=== PATIENT | female | born 1930 | race Caucasian/White ===

== ENCOUNTER 2018-11-27 20:24 | Inpatient (IN) | payer MEDICARE ==
[~2018-11-27] VITALS: Ht 167.6 cm; Wt 74.4 kg
[2018-11-27] MEDS ORDERED: SODIUM CHLORIDE 0.9% 1,000 ML IV ONE (22:36)
[2018-11-27] MEDS ORDERED: ONDANSETRON HCL 4MG/2ML INJ IV STA (22:36)
[2018-11-27 23:42] LABS: BASOPHILS % 0.6 % (0.0-2.0); EOSINOPHILS % 2.4 % (0.0-5.0); HEMATOCRIT. 39.8 % (36.0-48.0); HEMOGLOBIN. 12.8 g/dL (12.0-16.0); LYMPHOCYTES % 43.7 % (20.0-50.0); MEAN CORPUSCULAR VOLUME 87.3 fL (81.0-99.0); MEAN PLATELET VOLUME 10.1 fl (7.4-10.4); MONOCYTES % 10.8 % (2.0-8.0); NEUTROPHILS % 42.5 % (40.0-76.0); PLATELET 211 x1000/uL (130-400); RED BLOOD CELL COUNT 4.55 mill/uL (4.2-5.4); RED CELL DISTRIBUTION WIDTH 17.4 % (11.6-14.6)
[2018-11-27 23:50] LABS: CHLORIDE 99 mEq/L (98-107)
[2018-11-27 23:51] LABS: PROTHROMBIN TIME 10.5 sec (9.1-11.1)
[2018-11-27 23:59] LABS: CREATINE KINASE 29 IU/L (26-192)
[2018-11-28 00:14] LABS: BG BASE EXCESS 0.6 mmol/L (-2.0-2.0); BG CARBOXYHEMOGLOBIN 0.6 % (0.5-1.5); BG DEOXYHEMOGLOBIN 6.4 % (0.0-5.0); BG FRACTION INSPIRED OXYGEN 21; BG HCO3 ACT 26.2 mmol/L (22.0-26.0); BG METHEMOGLOBIN 0.2 % (0.0-1.5); BG OXYGEN SATURATION 93.5 % (92.0-98.5); BG OXYHEMOGLOBIN 92.8 % (94.0-97.0); BG PCO2 46.1 mmHg (35.0-45.0); BG PH 7.373 (7.350-7.450); BG PO2 71.6 mmHg (75.0-100.0); BG SAMPLE SITE RIGHT RADIAL; BG TOTAL HEMOGLOBIN 12.6 g/dL (12.0-18.0); BG VENT MODE ROOM AIR
[2018-11-28 03:17] LABS: CLARITY URINE CLEAR (CLEAR); COLOR URINE YELLOW (YELLOW); KETONES URINE NEGATIVE (NEGATIVE); LEUKOCYTE ESTERASE URINE 2+ (NEGATIVE); NITRITE URINE POSITIVE (NEGATIVE); OCCULT BLOOD URINE NEGATIVE (NEGATIVE); PROTEIN URINE NEGATIVE (NEGATIVE); UROBILINOGEN URINE 0.2 E.U./dL (0.2-1.0)
[2018-11-28] MEDS: SODIUM CHLORIDE 0.9% 1,000 ML IV SCH (09:16)
[2018-11-28] MEDS ORDERED: CLONIDINE 0.1MG TABLET PO PRN (09:30)
[2018-11-28] MEDS ORDERED: MAGNESIUM/ALUMINUM HYDROXIDE/SIMETHICONE 30ML UDC PO PRN (09:30)
[2018-11-28] MEDS ORDERED: IPRATROPIUM/ALBUTEROL 0.5-3(2.5)MG/3ML NEB INH PRN (09:30)
[2018-11-28] MEDS ORDERED: DOCUSATE SODIUM 100MG CAPSULE PO PRN (09:30)
[2018-11-28] MEDS: CEFTRIAXONE 1 G PREMIX 50 ML IV SCH (11:24)
[2018-11-28 12:14] LABS: ETHANOL BLOOD < 10 mg/dL
[2018-11-28 12:19] LABS: T4 FREE 0.95 ng/dL (0.76-1.46)
[2018-11-28 12:42] LABS: VITAMIN B12 SERUM >2000 pg/mL pg/mL (211-911)
[2018-11-28 22:21] VITALS: BP 141/86
[2018-11-28 22:26] VITALS: BP 141/86
[2018-11-29] VITALS: BP 136/78
[2018-11-29] MEDS: SODIUM CHLORIDE 0.9% 1,000 ML IV SCH (03:22)
[2018-11-29 04:00] VITALS: BP 148/67
[2018-11-29 08:00] VITALS: BP 116/55
[2018-11-29 09:03] LABS: *AMPHETAMINES SCREEN URINE NEGATIVE (NEGATIVE); *BARBITURATES SCREEN URINE NEGATIVE (NEGATIVE); *BENZODIAZEPINES SCREEN URINE NEGATIVE (NEGATIVE); *COCAINE SCREEN URINE NEGATIVE (NEGATIVE); CANNABINOID URINE SCREEN NEGATIVE (NEGATIVE); METHADONE URINE SCREEN NEGATIVE (NEGATIVE); OPIATES URINE SCREEN NEGATIVE (NEGATIVE); PHENCYCLIDINE URINE SCREEN NEGATIVE (NEGATIVE)
[2018-11-29] MEDS: CEFTRIAXONE 1 G PREMIX 50 ML IV SCH (11:31)
[2018-11-29 12:00] VITALS: BP 134/61
[2018-11-29] MEDS: ENOXAPARIN 40MG/0.4ML SYR SUBCUT SCH (15:00)
[2018-11-29] MEDS ORDERED: CEFTRIAXONE 1 G PREMIX 50 ML IV SCH (15:30)
[2018-11-29 16:00] VITALS: BP 140/66
[2018-11-29 20:00] VITALS: BP_SYST 124; BP_SYST 130; BP_SYST 133; BP_DIAS 58; BP_DIAS 62; BP_DIAS 71
[2018-11-29 21:22] LABS: BASOPHILS % 0.9 % (0.0-2.0); HEMATOCRIT. 36.2 % (36.0-48.0); HEMOGLOBIN. 11.6 g/dL (12.0-16.0); LYMPHOCYTES % 40.4 % (20.0-50.0); MEAN CORPUSCULAR HEMOGLOBIN 28.1 pg (28.0-32.0); MEAN CORPUSCULAR VOLUME 87.3 fL (81.0-99.0); MEAN PLATELET VOLUME 9.4 fl (7.4-10.4); MONOCYTES % 11.9 % (2.0-8.0); NEUTROPHILS % 45.8 % (40.0-76.0); PLATELET 220 x1000/uL (130-400); RED BLOOD CELL COUNT 4.14 mill/uL (4.2-5.4); RED CELL DISTRIBUTION WIDTH 17.4 % (11.6-14.6)
[2018-11-29 21:35] LABS: PHOSPHORUS 2.6 mg/dL (2.5-4.9)
[2018-11-29 21:39] LABS: T4 FREE 1.03 ng/dL (0.76-1.46)
[2018-11-30] VITALS: BP 134/57
[2018-11-30] MEDS: ACETAMINOPHEN 325MG TABLET PO PRN (01:02)
[2018-11-30] MEDS: SODIUM CHLORIDE 0.9% 1,000 ML IV SCH (02:17)
[2018-11-30 04:00] VITALS: BP 135/56
[2018-11-30 06:40] LABS: BASOPHILS % 1.2 % (0.0-2.0); EOSINOPHILS % 1.6 % (0.0-5.0); HEMOGLOBIN. 11.7 g/dL (12.0-16.0); LYMPHOCYTES % 48.7 % (20.0-50.0); MEAN CORPUSCULAR HEMOGLOBIN 28.3 pg (28.0-32.0); MEAN CORPUSCULAR VOLUME 86.8 fL (81.0-99.0); MEAN PLATELET VOLUME 9.5 fl (7.4-10.4); MONOCYTES % 12.2 % (2.0-8.0); NEUTROPHILS % 36.3 % (40.0-76.0); PLATELET 220 x1000/uL (130-400); RED BLOOD CELL COUNT 4.15 mill/uL (4.2-5.4); RED CELL DISTRIBUTION WIDTH 17.4 % (11.6-14.6)
[2018-11-30 08:00] VITALS: BP 131/75
[2018-11-30] MEDS ORDERED: CEFTRIAXONE 1 G PREMIX 50 ML IV SCH (11:30)
[2018-11-30] MEDS: ENOXAPARIN 40MG/0.4ML SYR SUBCUT SCH (15:29)
[2018-11-30 16:00] VITALS: BP 144/71
[2018-11-30] MEDS ORDERED: LEVOFLOXACIN 500MG PREMIX 100 ML IV NR (16:00)
[2018-11-30 20:00] VITALS: BP_SYST 136; BP_SYST 140; BP_SYST 143; BP_DIAS 66; BP_DIAS 69; BP_DIAS 70
[2018-12-01] VITALS: BP 139/69
[2018-12-01] MEDS: SODIUM CHLORIDE 0.9% 1,000 ML IV SCH ×3 (00:22→20:36)
[2018-12-01 04:00] VITALS: BP 126/78
[2018-12-01 06:18] LABS: HEMATOCRIT 37.3 % (36.0-48.0); HEMOGLOBIN 12.1 g/dL (12.0-16.0); MEAN CORPUSCULAR HEMOGLOBIN 27.9 pg (28.0-32.0); MEAN CORPUSCULAR VOLUME 86.4 fL (81.0-99.0); PLATELET 238 x1000/uL (130-400); RED BLOOD CELL COUNT 4.32 mill/uL (4.2-5.4); RED CELL DISTRIBUTION WIDTH 17.3 % (11.6-14.6)
[2018-12-01 06:26] LABS: CHLORIDE 108 mEq/L (98-107)
[2018-12-01 08:00] VITALS: BP 143/59
[2018-12-01] MEDS: ACETAMINOPHEN 325MG TABLET PO PRN ×2 (08:54→20:32)
[2018-12-01 12:00] VITALS: BP 149/72
[2018-12-01] MEDS ORDERED: ASCO500C15 PO (13:54)
[2018-12-01] MEDS ORDERED: PANT40TA4 PO (13:54)
[2018-12-01] MEDS ORDERED: NAPR-679 PO (13:54)
[2018-12-01] MEDS ORDERED: DONE5TAB33 PO (13:54)
[2018-12-01] MEDS ORDERED: GABA-529 PO (13:54)
[2018-12-01] MEDS ORDERED: DULO60CA63 PO (13:54)
[2018-12-01 16:16] VITALS: BP 147/74
[2018-12-01] MEDS: ENOXAPARIN 40MG/0.4ML SYR SUBCUT SCH (16:38)
[2018-12-01] MEDS: LEVOFLOXACIN 250MG PREMIX 50 ML IV SCH (17:07)
[2018-12-01 20:00] VITALS: BP 128/72
[2018-12-02 00:32] VITALS: BP 123/69
[2018-12-02 04:00] VITALS: BP 140/74
[2018-12-02 08:00] VITALS: BP 137/86
[2018-12-02] MEDS: ACETAMINOPHEN 325MG TABLET PO PRN (11:04)
[2018-12-02 12:00] VITALS: BP 128/65
[2018-12-02] MEDS: SODIUM CHLORIDE 0.9% 1,000 ML IV SCH (13:16)
[2018-12-02 16:00] VITALS: BP 141/79
[2018-12-02] MEDS: ENOXAPARIN 40MG/0.4ML SYR SUBCUT SCH (17:12)
[2018-12-02] MEDS: LEVOFLOXACIN 250MG PREMIX 50 ML IV SCH ×2 (17:33→17:35)
[2018-12-02 20:00] VITALS: BP 144/61
[2018-12-03 00:12] VITALS: BP 154/71
[2018-12-03 04:00] VITALS: BP 124/61
[2018-12-03 07:01] LABS: HEMATOCRIT 37.8 % (36.0-48.0); HEMOGLOBIN 12.3 g/dL (12.0-16.0); MEAN CORPUSCULAR HEMOGLOBIN 28.2 pg (28.0-32.0); MEAN CORPUSCULAR VOLUME 86.6 fL (81.0-99.0); PLATELET 235 x1000/uL (130-400); RED BLOOD CELL COUNT 4.36 mill/uL (4.2-5.4); RED CELL DISTRIBUTION WIDTH 17.7 % (11.6-14.6)
[2018-12-03 07:26] LABS: CHLORIDE 107 mEq/L (98-107)
[2018-12-03 08:00] VITALS: BP 117/72
[2018-12-03] MEDS: PANTOPRAZOLE 40MG DR TABLET PO SCH (09:02)
[2018-12-03] MEDS: ACETAMINOPHEN 325MG TABLET PO PRN (09:09)
[2018-12-03] MEDS: LEVOFLOXACIN 250MG TABLET PO SCH (11:36)
[2018-12-03 12:00] VITALS: BP 120/74
[2018-12-03] MEDS: ENOXAPARIN 40MG/0.4ML SYR SUBCUT SCH (14:37)
[2018-12-03 16:00] VITALS: BP 137/59
[2018-12-03 20:00] VITALS: BP 149/91
[2018-12-04] VITALS: BP_SYST 135; BP_SYST 159; BP_SYST 163; BP_DIAS 87; BP_DIAS 88
[2018-12-04 04:00] VITALS: BP 130/86
[2018-12-04] MEDS: PANTOPRAZOLE 40MG DR TABLET PO SCH (06:59)
[2018-12-04 08:00] VITALS: BP 125/63
[2018-12-04] MEDS: LEVOFLOXACIN 250MG TABLET PO SCH (11:31)
[2018-12-04 12:00] VITALS: BP 143/60
[2018-12-04] MEDS: ENOXAPARIN 40MG/0.4ML SYR SUBCUT SCH (15:25)
[2018-12-04 16:00] VITALS: BP 119/63
[2018-12-04 18:23] VITALS: BP 119/63
[2018-12-05] MEDS ORDERED: FAMOTIDINE 20MG TABLET PO SCH (09:00)
== END 2018-12-04 21:15 | DRG 73 ==
LOC: ER 20:24 → 7WST 11-28 03:09 → EDBEDREQTM 11-28 03:13 → EDBEDREQ 11-28 03:13 → ENRESERV 11-28 21:03
PROVIDERS: ADMIT Internal Medicine; ATTEND Internal Medicine
PROC: 4A00X4Z Measurement of Central Nervous Electrical Activity, External Approach (ICD-10-PCS; principal; 2018-11-29)
DX: G90.8 Other disorders of autonomic nervous system (principal); G92 Toxic encephalopathy; N39.0 Urinary tract infection, site not specified; B96.20 Unspecified Escherichia coli [E. coli] as the cause of diseases classified elsewhere; I10 Essential (primary) hypertension; K22.9 Disease of esophagus, unspecified; K57.90 Diverticulosis of intestine, part unspecified, without perforation or abscess without bleeding; F03.90 Unspecified dementia, unspecified severity, without behavioral disturbance, psychotic disturbance, mood disturbance, and anxiety; R26.9 Unspecified abnormalities of gait and mobility; K44.9 Diaphragmatic hernia without obstruction or gangrene
CPT/HCPCS: 36415; 36600; 70544; 70553; 71045; 73562; 74176; 80048; 80305; 80307; 80329; 82140; 82375; 82550; 82607; 82746; 82805; 82962; 83036; 83605; 83735; 84100; 84145; 84439; 84443; 84481; 84484; 85027; 87077; 87186; 93005; 93306; 93880; 93970; 96361; 96365; 96375; 97116; 97162; 97166; 97530; 97535; 99291; A6261; C1893; J0696; J1650; J1956; J2405; J7030; J7050